=== PATIENT | female | born 1990 | race American Indian/Alaskan Native ===

== ENCOUNTER 2018-06-26 08:16 | Emergency (ER) | payer SELFPAY ==
--- NOTE | 2018-06-26 09:19 | Emergency Department Report ---
Suture/Staple Removal - HPI Chief Complaint: Laceration/Recheck/Suture Stated Complaint: STITCHES REMOVAL Time Seen by Provider: 06/26/18 08:55 When Sutures or [place] Placed: 11-14 Days Ago Wound Location: plantar surface of the right great toe ED Review of Systems ROS: Stated complaint: STITCHES REMOVAL Other details as noted in HPI Comment: All other systems reviewed and negative ED Past Medical Hx - Past Medical History Previous Medical History?: No - Surgical History Past Surgical History?: Yes Additional Surgical History: c section - Social History Smoking Status: Never Smoker Substance Use Type: None - Medications Home Medications: Home Medications Medication Instructions Recorded Confirmed Last Taken Type Ketorolac [Toradol] 10 mg PO Q6H PRN #20 tablet 06/07/18 Unknown Rx Methocarbamol [Robaxin-750] 750 mg PO Q8HR #20 tablet 06/07/18 Unknown Rx cephALEXin [Keflex] 500 mg PO Q6HR #40 capsule 06/07/18 Unknown Rx Suture Removal Exam - Exam General: Vital signs noted. No distress. Alert and acting appropriately. Wound: No Pathologic Erythema, No Tenderness, No Drainage, No Pus, No Wound Dehiscence Other Systems: All other systems reviewed and are unremarkable. ED Course Vital Signs 06/26/18 08:23 Temperature 98.4 F Pulse Rate 64 Respiratory 16 Rate Blood Pressure 100/59 O2 Sat by Pulse 100 Oximetry ED Recheck MDM - Core Measures AMI Core Measures Followed: Yes - Medical Decision Making Sutures removed by nursing staff. Patient tolerated procedure well. Patient discharged home. Critical care attestation.: If time is entered above; I have spent that time in minutes in the direct care of this critically ill patient, excluding procedure time. ED Disposition Clinical Impression: Visit for suture removal Disposition: TO HOME OR SELFCARE Is pt being admited?: No Does the pt Need Aspirin: No Condition: Stable Instructions: Suture Removal (ED) Time of Disposition: 09:19
== END 2018-06-26 09:29 | disposition home or self-care (01) ==
LOC: ED 08:16